=== PATIENT | female | born 1965 ===

== ENCOUNTER 2024-09-19 10:28 | Outpatient (AMB) | payer OTHER, SELFPAY ==
--- NOTE | 2024-09-19 10:38 | HO.SPINEOV ---
Intake Visit Reasons: herniated disc/lumbar stenosis Intake Note: Ms. Dueñas is here today c/o low back pain. 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 The symptoms started after she suffered flu for 1 week. The pain was horrific. The pain was treated with muscle relaxer, tramadol and Motrin. Over time her symptoms subsided. Two weeks ago she went to [place] and after that she had a significant flare-up, which again subsided. Currently she is not taking any pain medications anymore unless she has a flare-up of symptoms. Her left leg can give out on times. She has not returned to her routine activity such as swimming or walking. Her left leg just feels different. She went to physical therapy 3 times in his she is still doing the exercises. No injections. PMH: Tonsillectomy, hysterectomy Medications: Muscle relaxer, tramadol, 800 mg Motrin p.r.n. 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 She is . Nonsmoker Physical Exam: Pleasant female. Straight leg raise produces pain in the left anterior thigh. The left patellar reflexes absent. Hip flexors are 4/5 on the left side. Sensory exam is intact. Radiological Studies: MRI done at [place] on 08/21/2024 shows lumbar degenerative scoliosis with the apex it L2-L3. In addition, there is a L4-5 spondylolisthesis and severe left L4 foraminal stenosis due to a disc extrusion and degenerative changes. Furthermore, there is severe L4-5 central spinal stenosis. A standing x-ray of the lumbar spine with flexion-extension shows again the grade 1-2 L4-5 spondylolisthesis and a mild lateral listhesis L3-4. Impression/Plan: This patient is suffering from a left L4 radiculopathy that fortunately is subsiding. The radiculopathy is caused by severe left L4 foraminal stenosis, which is associated with the lumbar degenerative scoliosis. She is not symptomatic from the central spinal stenosis. The plan will be to continue conservative management. She will return to my office if needed. Thank you for allowing me to participate in your patients care. total time spent was 50 minutes in counseling ,coordination of plan, personal review of imaging, surgical decision making and subsequent plan Chino Rosario MD, PhD Spine Fellowship Trained Neurosurgeon Director, [facility] Orders: Orders XR lumbar spine 4V min Today M43.17 - Spondylolisthesis, lumbosacral region Coding Level of Care Code New Pt Level 4 (98121) Diagnoses Spondylolisthesis of lumbosacral region M43.17
== END 2024-09-19 11:18 | disposition home or self-care (01) ==
PROVIDERS: Visit Provider Neurological Surgery
DX: M43.17 Spondylolisthesis, lumbosacral region (principal)
CPT/HCPCS: 99204

== ENCOUNTER 2024-09-19 10:28 | Outpatient (REF) | payer OTHER, SELFPAY ==
--- NOTE | ~2024-09-19 | XR_ITS ---
EXAMINATION: XR LUMBAR SPINE 4 VIEWS CLINICAL INFORMATION: Spondylolisthesis, lumbosacral region M43.17. COMPARISON: None TECHNIQUE: 4 views of lumbar spine. FINDINGS: 5 nonrib-bearing lumbar vertebral bodies are visualized. There is moderate to severe levoscoliosis of the lumbar spine centered at L2. Also noted is minimal retrolisthesis of L2 on L3, mild retrolisthesis of L3 on L4 with minimal anterolisthesis of L4 on L5. There is no appreciable change in alignment with flexion or extension positioning. Lumbar vertebral body heights are maintained. There is mild to moderate diffuse disc space narrowing. Small osteophytes are scattered throughout the lumbar spine. There are degenerative changes of the posterior elements of the lumbar spine. XR/XR lumbar spine 4V min IMPRESSION: 1. Moderate diffuse degenerative changes of the lumbar spine without compression deformity. 2. No radiographic evidence of instability. Electronically signed by: Vince Sharma MD 11/05/2024 09:39 AM ERIN
== END 2024-09-19 10:29 | disposition home or self-care (01) ==
LOC: HO.HOSX 10:28
PROVIDERS: Visit Provider Neurological Surgery
DX: M43.17 Spondylolisthesis, lumbosacral region (principal)
CPT/HCPCS: 72110